=== PATIENT | male | born 1990 | race Caucasian/White ===

== ENCOUNTER 2023-04-15 21:28 | Emergency (ER) | payer MEDICAID ==
[~2023-04-15] VITALS: Ht 167.6 cm; Wt 65.8 kg
[2023-04-15 22:48] VITALS: BP 113/75; TEMP 98; O2SAT 98
[2023-04-15 23:34] LABS: APPEARANCE,URINE CLEAR (CLEAR); BILIRUBIN,URINE NEGATIVE (NEGATIVE); BLOOD, URINE NEGATIVE Ery/uL (NEGATIVE); COLOR,URINE YELLOW (YELLOW); KETONES,URINE NEGATIVE (NEGATIVE); LEUKOCYTE ESTERASE ,URINE NEGATIVE (NEGATIVE); NITRITE, URINE NEGATIVE (NEGATIVE); PH,URINE 5.5 (5.0-8.0); PROTEIN,URINE NEGATIVE (NEGATIVE); UGLUCOSE NEGATIVE (NEGATIVE); UROBILINOGEN,URINE 0.2 EU/dL (0.2)
== END 2023-04-16 00:30 | disposition home or self-care (01) ==
LOC: ER 21:39
DX: R36.9 Urethral discharge, unspecified (principal)

== ENCOUNTER 2023-08-02 13:10 | Emergency (ER) | payer MEDICAID ==
[~2023-08-02] VITALS: Ht 160 cm; Wt 57.2 kg
[2023-08-02] MEDS ORDERED: diphenhydrAMINE HCL 50 MG/ML VIAL ONE (14:57)
[2023-08-02] MEDS ORDERED: methylPREDNISolone SOD SUCC 125 MG/2ML VIAL ONE (14:57)
[2023-08-02] MEDS ORDERED: FAMOTIDINE (20 MG) 20 MG TABLET ONE (14:57)
[2023-08-02] MEDS: diphenhydrAMINE HCL 50 MG/ML VIAL IV ONE (15:10)
[2023-08-02] MEDS: FAMOTIDINE (20 MG) 20 MG TABLET PO ONE (15:11)
[2023-08-02] MEDS: IV NS 0.9% 1,000 ML BAG IV ONE (15:11)
[2023-08-02] MEDS: methylPREDNISolone SOD SUCC 125 MG/2ML VIAL IV ONE (15:11)
[2023-08-02] MEDS ORDERED: DIPH25CA83 PO (15:36)
[2023-08-02] MEDS ORDERED: PRED20TA PO (15:36)
[2023-08-02] MEDS ORDERED: FAMO-131 PO (15:36)
[2023-08-02 15:48] VITALS: BP 125/70; TEMP 98.1; O2SAT 98
== END 2023-08-02 15:49 | disposition home or self-care (01) ==
LOC: ER 13:13
DX: L50.8 Other urticaria (principal); T78.49XA Other allergy, initial encounter; X58.XXXA Exposure to other specified factors, initial encounter
CPT/HCPCS: 99284; 96374; 96361; 96375; J1200; J2930; J7030

== ENCOUNTER 2024-06-18 12:08 | Emergency (ER) | payer MEDICAID ==
[~2024-06-18] VITALS: Ht 167.6 cm; Wt 59.9 kg
[~2024-06-18 12:08] MED LIST: DIPH25CA83 PO; FAMO-131 PO; PRED20TA PO
[2024-06-18] MEDS ORDERED: CYCL5TAB PO (13:27)
[2024-06-18] MEDS ORDERED: LIDO30AD10 TP (13:27)
[2024-06-18] MEDS ORDERED: IBUP-1955 PO (13:27)
[2024-06-18] MEDS ORDERED: KETOROLAC TROMETHAMINE 15 MG/ML VIAL ONE (13:38)
[2024-06-18] MEDS ORDERED: LIDOCAINE 5% (PATCH) 1 EA PATCH TP ONE (13:38)
[2024-06-18] MEDS: LIDOCAINE 5% (PATCH) 1 EA PATCH TP SCH (13:45)
[2024-06-18] MEDS: KETOROLAC TROMETHAMINE 15 MG/ML VIAL IM ONE (13:45)
[2024-06-18 13:53] VITALS: BP 117/80; TEMP 98.6; O2SAT 99
== END 2024-06-18 13:54 | disposition home or self-care (01) ==
LOC: ER 12:10
DX: M54.41 Lumbago with sciatica, right side (principal); Z79.52 Long term (current) use of systemic steroids
CPT/HCPCS: 99283; 96372; J1885